=== PATIENT | female | born 2005 | race African-American/Black ===

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

== ENCOUNTER 2023-07-16 09:46 | Emergency (ER) | payer BC, OTHER ==
[~2023-07-16] VITALS: Ht 157.5 cm; Wt 81.6 kg
[2023-07-16 09:53] VITALS: BP 120/50; PULSE 92; RESP 16; TEMP 99; O2SAT 98
[2023-07-16] MEDS ORDERED: ONDANSETRON HCL 4MG/2ML INJ IV STA (10:08)
[2023-07-16] MEDS ORDERED: SODIUM CHLORIDE 0.9% 1,000 ML IV ONE (10:15)
[2023-07-16] MEDS ORDERED: ACETAMINOPHEN 325MG TABLET PO ONE (10:15)
[2023-07-16 11:57] LABS: BASOPHILS % 0.6 % (0.0-2.0); EOSINOPHILS % 0.5 % (0.0-5.0); HEMATOCRIT. 37.1 % (36.0-48.0); LYMPHOCYTES % 20.1 % (20.0-50.0); MEAN CORPUSCULAR HEMOGLOBIN 28.5 pg (28.0-32.0); MEAN CORPUSCULAR HGB CONC 32.4 g/dL (31.0-37.0); MEAN CORPUSCULAR VOLUME 88.2 fL (81.0-99.0); MEAN PLATELET VOLUME 8.8 fl (7.4-10.4); MONOCYTES % 7.4 % (2.0-8.0); NEUTROPHILS % 71.4 % (40.0-76.0); PLATELET 285 x1000/uL (130-400); RED CELL DISTRIBUTION WIDTH 14.2 % (11.6-14.6); WHITE BLOOD COUNT 7.6 x1000/uL (4.5-11.0)
[2023-07-16 12:17] LABS: HCG SCREEN NEGATIVE
[2023-07-16 12:19] LABS: ALANINE AMINOTRANSFERASE 12 IU/L (10-49); ALBUMIN 4.3 g/dL (3.2-4.8); ASPARTATE AMINOTRANSFERASE 14 IU/L (<34); BILIRUBIN TOTAL 0.4 mg/dL (0.1-1.0); CALCIUM 9.3 mg/dL (8.7-10.4); CARBON DIOXIDE 26 mEq/L (21-32); CHLORIDE 108 mEq/L (98-107); CREATININE 0.6 mg/dL (0.6-1.0); GLUCOSE 88 mg/dL (70-105); POTASSIUM 3.5 mEq/L (3.5-5.1); PROTEIN TOTAL 7.2 g/dL (6.0-8.3); SODIUM 140 mEq/L (136-145); UREA NITROGEN BLOOD 9 mg/dL (9-23)
[2023-07-16] MEDS ORDERED: METO-293 PO (13:34)
[2023-07-16] MEDS ORDERED: IBUP-2028 PO (13:34)
[2023-07-16] MEDS ORDERED: KETOROLAC 30MG/ML VIAL IV ONE (13:45)
== END 2023-07-16 15:51 | disposition home or self-care (01) ==
LOC: ER 09:46
DX: R51.9 Headache, unspecified (principal); R11.2 Nausea with vomiting, unspecified; F41.9 Anxiety disorder, unspecified
CPT/HCPCS: 99284; 70450; 80053; 84703; 85025; 36415; J7030

== ENCOUNTER 2024-11-28 21:25 | Emergency (ER) | payer BC, OTHER ==
[~2024-11-28] VITALS: Ht 152.4 cm; Wt 67.0 kg
[~2024-11-28 21:25] MED LIST: IBUP-2028 PO; METO-293 PO
[2024-11-28 21:40] VITALS: O2SAT 100
[2024-11-28 21:45] VITALS: BP 129/75; PULSE 75; RESP 19; TEMP 36.8; O2SAT 100
[2024-11-28] MEDS: ONDANSETRON HCL 4MG TABLET PO ONE (22:21)
[2024-11-28] MEDS: KETOROLAC 15MG/ML VIAL IM ONE (22:22)
[2024-11-28 22:29] LABS: CLARITY URINE TURBID (CLEAR); COLOR URINE DARK YELLOW (YELLOW); GLUCOSE URINE NEGATIVE (NEGATIVE); KETONES URINE 2+ (NEGATIVE); LEUKOCYTE ESTERASE URINE 3+ (NEGATIVE); NITRITE URINE POSITIVE (NEGATIVE); OCCULT BLOOD URINE 3+ (NEGATIVE); PROTEIN URINE 2+ (NEGATIVE); SPECIFIC GRAVITY URINE 1.019 (1.005-1.030)
[2024-11-28 22:39] LABS: BACTERIA URINE 3+; RBC URINE 25-50 /hpf (0-2); SQUAMOUS EPITHELIAL CELL URINE 1+ /lpf (RARE/1+)
[2024-11-28 22:40] LABS: WBC URINE 25-50 /hpf (0-2)
[2024-11-28] MEDS ORDERED: NITR100C MT (23:00)
== END 2024-11-29 00:06 | disposition home or self-care (01) ==
LOC: ER 21:25
DX: N39.0 Urinary tract infection, site not specified (principal); F41.9 Anxiety disorder, unspecified; Z79.1 Long term (current) use of non-steroidal anti-inflammatories (NSAID); Z79.899 Other long term (current) drug therapy
CPT/HCPCS: 99283; 81003; 81025; 87086; 87186; 87077; 96372; J1885; Q0162

== ENCOUNTER 2025-06-10 13:18 | Emergency (ER) | payer MEDICAID, OTHER ==
[~2025-06-10] VITALS: Ht 157.5 cm; Wt 67.0 kg
[~2025-06-10 13:18] MED LIST changes: +NITR100C MT
[2025-06-10 13:30] VITALS: O2SAT 100
[2025-06-10 14:12] LABS: CLARITY URINE TURBID (CLEAR); COLOR URINE ORANGE (YELLOW); GLUCOSE URINE NEGATIVE (NEGATIVE); KETONES URINE NEGATIVE (NEGATIVE); LEUKOCYTE ESTERASE URINE 1+ (NEGATIVE); NITRITE URINE NEGATIVE (NEGATIVE); OCCULT BLOOD URINE 3+ (NEGATIVE); PH URINE 7.5 (4.5-8.0); PROTEIN URINE 1+ (NEGATIVE); SPECIFIC GRAVITY URINE 1.022 (1.005-1.030); UROBILINOGEN URINE 1.0 E.U./dL (0.2-1.0)
[2025-06-10] MEDS: ACETAMINOPHEN 500MG TABLET PO ONE (14:42)
[2025-06-10] MEDS: MAGNESIUM/ALUMINUM HYDROXIDE/SIMETHICONE 30ML UDC PO ONE (14:42)
[2025-06-10] MEDS: ONDANSETRON 4MG ODT PO ONE (14:43)
[2025-06-10 14:44] LABS: BACTERIA URINE 2+; RBC URINE TNTC /hpf (0-2); SQUAMOUS EPITHELIAL CELL URINE 2+ /lpf (RARE/1+); YEAST URINE NONE SEEN
[2025-06-10 15:05] LABS: BASOPHILS % 0.7 % (0.0-2.0); EOSINOPHILS % 1.1 % (0.0-5.0); HEMATOCRIT. 36.7 % (36.0-48.0); HEMOGLOBIN. 12.3 g/dL (12.0-16.0); LYMPHOCYTES % 18.4 % (20.0-50.0); MEAN PLATELET VOLUME 8.7 fl (7.4-10.4); MONOCYTES % 5.7 % (2.0-8.0); NEUTROPHILS % 74.1 % (40.0-76.0); PLATELET 244 x1000/uL (130-400); RED BLOOD CELL COUNT 4.21 mill/uL (4.2-5.4); RED CELL DISTRIBUTION WIDTH 13.8 % (11.6-14.6)
[2025-06-10 15:19] LABS: CREATININE 0.7 mg/dL (0.6-1.0)
[2025-06-10 15:20] LABS: UREA NITROGEN BLOOD 11 mg/dL (9-23)
[2025-06-10 15:21] LABS: ASPARTATE AMINOTRANSFERASE 11 IU/L (<34)
[2025-06-10 15:22] LABS: BILIRUBIN DIRECT 0.1 mg/dL (<=3.0); BILIRUBIN TOTAL 0.4 mg/dL (0.1-1.0); PROTEIN TOTAL 6.6 g/dL (6.0-8.3)
[2025-06-10 15:32] LABS: HCG SCREEN NEGATIVE
[2025-06-10] MEDS ORDERED: CEPH500T MT (17:09)
[2025-06-10 18:04] VITALS: BP 105/63; PULSE 77; RESP 18; TEMP 36.8; O2SAT 100
== END 2025-06-10 18:07 | disposition home or self-care (01) ==
LOC: ER 13:18
DX: N39.0 Urinary tract infection, site not specified (principal); Z79.1 Long term (current) use of non-steroidal anti-inflammatories (NSAID); Z87.11 Personal history of peptic ulcer disease; Z87.19 Personal history of other diseases of the digestive system
CPT/HCPCS: 99283; 80076; 80048; 81003; 81025; 84703; 83690; 85025; 36415; Q0162